=== PATIENT | female | born 1995 | race Two or more races ===

== ENCOUNTER 2020-06-29 12:52 | Emergency (ER) | payer MEDICAID ==
[~2020-06-29] VITALS: Ht 160 cm; Wt 59.0 kg
[2020-06-29 15:59] VITALS: BP 105/55
[2020-06-29 18:11] LABS: Basophils # (auto) 0 10 ^3/uL (0-0.2); Basophils % (auto) 0.3 % (0.0-2.0); Eosinophils # (auto) 0.1 10 ^3/uL (0-0.8); Hematocrit 29.9 % (36.0-46.0); Hemoglobin 9.3 g/dL (12.2-16.2); Lymphocytes # (auto) 1.3 10 ^3/uL (0.4-5.4); Lymphocytes % (auto) 20.3 % (10.0-50.0); Mean Corpuscular Hemoglobin 21.7 pg (28.0-32.0); Mean Corpuscular Hgb Conc. 31.1 g/dL (32.0-36.0); Mean Corpuscular Volume 69.9 fL (80.0-100.0); Monocytes # (auto) 0.5 10 ^3/uL (0-1.3); Monocytes % (auto) 7.4 % (0.0-12.0); Neutrophils # (auto) 4.6 10 ^3/uL (1.6-8.6); Platelet Count (auto) 350 10^3/uL (140-450); Red Blood Cells 4.28 10^6/uL (4.0-5.20); Red Cell Distribution Width 16.8 % (11.8-14.3); White Blood Cell 6.5 10^3/uL (4.4-10.8)
[2020-06-29 18:24] LABS: Albumin 3.8 g/dL (3.4-5.0); Calcium 9.2 mg/dL (8.5-10.1); Potassium 3.9 mmol/L (3.5-5.1)
[2020-06-29 18:27] LABS: BUN/Creatinine Ratio 13.3; Bilirubin, Total 0.6 mg/dL (0.2-1.0); Total Protein 8.4 g/dL (6.4-8.2)
== END 2020-06-29 18:11 | disposition home or self-care (01) ==
LOC: ER 12:52
DX: M54.2 Cervicalgia (principal); B35.0 Tinea barbae and tinea capitis; D64.9 Anemia, unspecified
CPT/HCPCS: 36415; 80053; 85025

== ENCOUNTER 2020-08-18 03:44 | Emergency (ER) | payer MEDICAID ==
[~2020-08-18] VITALS: Ht 162.6 cm; Wt 59.0 kg
[2020-08-18 03:45] VITALS: BP 130/85
[2020-08-18] MEDS ORDERED: IBUPROFEN 800 MG TAB PO ONE (05:15)
[2020-08-18] MEDS ORDERED: BENZOCAINE (DENTAL) 20 % SPRAY 60ML MT ONE (05:15)
== END 2020-08-18 05:34 | disposition home or self-care (01) ==
LOC: ER 03:47
DX: K03.81 Cracked tooth (principal); K02.9 Dental caries, unspecified
CPT/HCPCS: 81025

== ENCOUNTER 2020-10-29 06:28 | Emergency (ER) | payer MEDICAID ==
[~2020-10-29] VITALS: Ht 162.6 cm; Wt 59.0 kg
[2020-10-29 07:38] VITALS: BP 114/69
[2020-10-29] MEDS ORDERED: BENZOCAINE (DENTAL) 20 % SPRAY 60ML MT ONE (08:00)
== END 2020-10-29 08:07 | disposition home or self-care (01) ==
LOC: ER 06:28
DX: K02.9 Dental caries, unspecified (principal)